=== PATIENT | female | born 2000 | race Caucasian/White ===

== ENCOUNTER 2021-02-24 20:22 | Observation (INO) | payer MEDICAID, OTHER ==
[~2021-02-24] VITALS: Ht 165.1 cm; Wt 91.5 kg
[2021-02-24] MEDS ORDERED: PREN1TAB23 PO (23:51)
== END 2021-02-25 00:05 | disposition home or self-care (01) ==
LOC: ER 20:22 → 8 EST LDRP 20:42
PROVIDERS: ADMIT Obstetrics & Gynecology; ATTEND Obstetrics & Gynecology
DX: O26.853 Spotting complicating pregnancy, third trimester (principal); O26.893 Other specified pregnancy related conditions, third trimester; R10.30 Lower abdominal pain, unspecified; Z3A.33 33 weeks gestation of pregnancy
CPT/HCPCS: 59025; 76805; 76818; 99281; G0378

== ENCOUNTER 2021-03-23 07:37 | Inpatient (IN) | payer OTHER ==
[~2021-03-23] VITALS: Ht 170.2 cm; Wt 90.0 kg
[~2021-03-23 07:37] MED LIST: PREN1TAB23 PO
[2021-03-23] MEDS ORDERED: CARBOPROST TROMETHAMINE 250 MCG/ML AMPUL IM PRN (08:45)
[2021-03-23] MEDS ORDERED: METHYLERGONOVINE MALEATE 0.2 MG/ML IM PRN (08:45)
[2021-03-23] MEDS ORDERED: NALOXONE HCL 0.4 MG/ML 1ML VIAL IM PRN (08:45)
[2021-03-23] MEDS ORDERED: BUTORPHANOL TARTRATE 2 MG/ML VIAL IV PRN (08:45)
[2021-03-23] MEDS ORDERED: LIDOCAINE HCL 1% 20ML VIAL (Pyxis) INJ INFIL SCH (08:45)
[2021-03-23 09:32] LABS: CLARITY URINE CLEAR (CLEAR); COLOR URINE YELLOW (YELLOW); KETONES URINE NEGATIVE (NEGATIVE); LEUKOCYTE ESTERASE URINE TRACE (NEGATIVE); NITRITE URINE NEGATIVE (NEGATIVE); OCCULT BLOOD URINE NEGATIVE (NEGATIVE); PROTEIN URINE 2+ (NEGATIVE); SPECIFIC GRAVITY URINE 1.025 (1.005-1.030); UROBILINOGEN URINE 0.2 E.U./dL (0.2-1.0)
[2021-03-23] MEDS: LACTATED RINGERS 1,000 ML IV SCH ×4 (09:32→20:07)
[2021-03-23 09:43] LABS: INR 0.9; PARTIAL THROMBOPLASTIN TIME 25.4 sec (23.4-31.0); PROTHROMBIN TIME 9.8 sec (9.6-11.0)
[2021-03-23 09:44] LABS: BASOPHILS % 0.7 % (0.0-2.0); EOSINOPHILS % 1.1 % (0.0-5.0); HEMATOCRIT. 30.2 % (36.0-48.0); HEMOGLOBIN. 9.7 g/dL (12.0-16.0); LYMPHOCYTES % 21.8 % (20.0-50.0); MEAN CORPUSCULAR VOLUME 77.9 fL (81.0-99.0); MONOCYTES % 6.3 % (2.0-8.0); NEUTROPHILS % 70.1 % (40.0-76.0); PLATELET 226 x1000/uL (130-400); RED BLOOD CELL COUNT 3.88 mill/uL (4.2-5.4); RED CELL DISTRIBUTION WIDTH 15.6 % (11.6-14.6)
[2021-03-23 09:45] LABS: *AMPHETAMINES SCREEN URINE NEGATIVE (NEGATIVE); *BARBITURATES SCREEN URINE NEGATIVE (NEGATIVE); *BENZODIAZEPINES SCREEN URINE NEGATIVE (NEGATIVE); *COCAINE SCREEN URINE NEGATIVE (NEGATIVE); METHADONE URINE SCREEN NEGATIVE (NEGATIVE)
[2021-03-23 09:46] LABS: CANNABINOID URINE SCREEN NEGATIVE (NEGATIVE); OPIATES URINE SCREEN NEGATIVE (NEGATIVE); PHENCYCLIDINE URINE SCREEN NEGATIVE (NEGATIVE)
[2021-03-23] MEDS ORDERED: INFLUENZA VACCINE 05/PF 0.5 ML SYRINGE IM ONE (10:00)
[2021-03-23] MEDS ORDERED: PENICILLIN G POTASSIUM 5 MMU in DEXT 5% WATER 100 ML IV SCH (10:00)
[2021-03-23] MEDS ORDERED: MISOPROSTOL 100MCG TABLET PO PRN (10:45)
[2021-03-23 11:18] LABS: HEPATITIS B SURFACE ANTIGEN NEGATIVE
[2021-03-23] MEDS: MISOPROSTOL 100MCG TABLET VG PRN ×2 (11:34→15:09)
[2021-03-23] MEDS ORDERED: ROPIVACAINE HCL/PF EPIDURAL 200 ML EPI SCH (15:00)
[2021-03-23] MEDS: PENICILLIN G POTASSIUM 2.5 MMU in DEXTROSE 5% WATER 50 ML IV SCH ×2 (15:09→18:56)
[2021-03-23] MEDS: DEXT 5%/LR + PITOCIN 20UNITS/L 1,000 ML IV SCH ×2 (18:39→23:22)
[2021-03-23] MEDS ORDERED: ROPIVACAINE HCL/PF EPIDURAL 200 ML EPI ONE (19:18)
[2021-03-23] MEDS ORDERED: FENTANYL CITRATE/PF 50MCG/ML 2ML VIAL ONE (19:18)
[2021-03-23] MEDS ORDERED: BENZOCAINE/LANOLIN/ALOE VERA SPRAY TOP PRN (23:00)
[2021-03-23] MEDS ORDERED: ACETAMINOPHEN WITH CODEINE 300/30MG TABLET PO PRN (23:00)
[2021-03-23] MEDS ORDERED: GLYCERIN/WITCH HAZEL LEAF MEDICATED PAD TOP PRN (23:00)
[2021-03-23] MEDS ORDERED: IBUPROFEN 400MG TABLET PO PRN (23:00)
[2021-03-23] MEDS ORDERED: BISACODYL 10MG SUPP PR PRN (23:00)
[2021-03-23] MEDS ORDERED: DIPHENHYDRAMINE 25MG CAPSULE PO PRN (23:00)
[2021-03-23] MEDS ORDERED: DEXT 5%/LR + PITOCIN 20UNITS/L 1,000 ML IV SCH (23:00)
[2021-03-23] MEDS ORDERED: HEMORRHOIDAL SUPP PR PRN (23:00)
[2021-03-23] MEDS ORDERED: LANOLIN OINT 7GM TUBE TOP PRN (23:00)
[2021-03-23 23:59] VITALS: BP 127/79
[2021-03-24] MEDS: IBUPROFEN 800MG TABLET PO PRN ×2 (03:56→20:37)
[2021-03-24 04:00] VITALS: BP 106/51
[2021-03-24 07:17] LABS: BASOPHILS % 0.4 % (0.0-2.0); EOSINOPHILS % 0.4 % (0.0-5.0); HEMATOCRIT. 26.1 % (36.0-48.0); HEMOGLOBIN. 8.3 g/dL (12.0-16.0); LYMPHOCYTES % 13.5 % (20.0-50.0); MEAN CORPUSCULAR HEMOGLOBIN 24.9 pg (28.0-32.0); MEAN PLATELET VOLUME 9.6 fl (7.4-10.4); MONOCYTES % 5.2 % (2.0-8.0); NEUTROPHILS % 80.5 % (40.0-76.0); PLATELET 181 x1000/uL (130-400); RED BLOOD CELL COUNT 3.35 mill/uL (4.2-5.4); RED CELL DISTRIBUTION WIDTH 15.4 % (11.6-14.6)
[2021-03-24 07:30] VITALS: BP 117/74
[2021-03-24] MEDS: PRENATAL VIT/FE FUMARATE/FA TABLET PO SCH (08:15)
[2021-03-24] MEDS: SIMETHICONE 80MG TABLET CHEW PO SCH ×4 (08:16→20:37)
[2021-03-24] MEDS: MAGNESIUM/ALUMINUM HYDROXIDE/SIMETHICONE 30ML UDC PO SCH ×4 (08:16→20:36)
[2021-03-24] MEDS: FERROUS SULFATE 325MG TABLET PO SCH ×3 (08:16→17:19)
[2021-03-24] MEDS ORDERED: INFLUENZA VACCINE 05/PF 0.5 ML SYRINGE IM ONE (10:00)
[2021-03-24 17:00] VITALS: BP 125/68
[2021-03-24 19:45] VITALS: BP 123/69
[2021-03-24] MEDS ORDERED: DOCUSATE SODIUM 100MG CAPSULE PO SCH (21:00)
[2021-03-25 03:30] VITALS: BP 126/59
[2021-03-25] MEDS ORDERED: IBUP-2030 PO (05:21)
[2021-03-25 07:50] VITALS: BP 121/71
[2021-03-25] MEDS: MAGNESIUM/ALUMINUM HYDROXIDE/SIMETHICONE 30ML UDC PO SCH (09:29)
[2021-03-25] MEDS: FERROUS SULFATE 325MG TABLET PO SCH (09:30)
[2021-03-25] MEDS: PRENATAL VIT/FE FUMARATE/FA TABLET PO SCH (09:30)
[2021-03-25] MEDS: SIMETHICONE 80MG TABLET CHEW PO SCH (09:30)
== END 2021-03-25 12:15 | disposition home or self-care (01) | DRG 560 ==
LOC: OBSVTOIN 07:37 → 8 EST LDRP 07:37 → 8EST 23:59
PROVIDERS: ADMIT Specialist; ATTEND Specialist
PROC: 10E0XZZ Delivery of Products of Conception, External Approach (ICD-10-PCS; principal; 2021-03-23)
PROC: 0KQM0ZZ Repair Perineum Muscle, Open Approach (ICD-10-PCS; 2021-03-23)
PROC: 3E0R3BZ Introduction of Anesthetic Agent into Spinal Canal, Percutaneous Approach (ICD-10-PCS; 2021-03-23)
PROC: 00HU33Z Insertion of Infusion Device into Spinal Canal, Percutaneous Approach (ICD-10-PCS; 2021-03-23)
DX: O60.14X0 Preterm labor third trimester with preterm delivery third trimester, not applicable or unspecified (principal); Z37.0 Single live birth; D64.9 Anemia, unspecified; O42.913 Preterm premature rupture of membranes, unspecified as to length of time between rupture and onset of labor, third trimester; O99.62 Diseases of the digestive system complicating childbirth; O69.81X0 Labor and delivery complicated by cord around neck, without compression, not applicable or unspecified; Z20.822 Contact with and (suspected) exposure to COVID-19; K80.20 Calculus of gallbladder without cholecystitis without obstruction; O70.1 Second degree perineal laceration during delivery; O90.81 Anemia of the puerperium; Z3A.36 36 weeks gestation of pregnancy
CPT/HCPCS: 36415; 76805; 76818; 80305; 81003; 85025; 86592; 86703; 86762; 86850; 86900; 87070; 87340; 87426; 90686; 99281; G0378; J2540; J2590; J2795; J3010; J7060; J7120; A4315